=== PATIENT | male | born 2000 | race Caucasian/White ===

== ENCOUNTER 2024-07-22 19:05 | Emergency (ER) | payer SELFPAY ==
[2024-07-22 19:07] VITALS: BP 126/74; PULSE 125; RESP 14; TEMP 36; O2SAT 97; BMI 31.9
--- NOTE | 2024-07-22 19:56 | ED.VIS.GI ---
HPI HPI - GI History of Present Illness Chief Complaint: Abd Pain Narrative Narrative: 24-year-old male who denies significant past medical history presents with nausea, no vomiting, but 5 episodes of diarrhea and crampy abdominal pain that has had since 2:00 this morning. This is approximately 17 hours ago when it started. He has had 4-5 episodes of nonbloody diarrhea. He is nauseated but he has not vomited. He may feel feverish at times. He states a lot of his coworkers have the same symptoms. Feels somewhat weak and lightheaded as well. No significant past medical history. [facility] Medical History Physical exam, pre-employment Allergy/AdvReac Type Severity Reaction Status Date / Time Environmental Allergies: Allergy Mild Itching Verified 07/22/24 19:06 Uncoded (seasonal) Family History no significant family his Social History Smoking Status: Never smoker ROS ROS ED ROS Narrative Constitutional: Subjective fever, no chills. HEENT: No sore throat. No neck pain. No loss of vision. No rhinorrhea. Cardiovascular: No chest pain. No palpitations. No pedal edema. Respiratory: No cough, no shortness of breath. Abdominal: Diffuse, crampy abdominal pain. Positive nausea. No vomiting. 4-5 episodes of diarrhea, no bloody. Genitourinary: No dysuria. No hematuria. Musculoskeletal: No myalgias. No arthralgias. Neurologic: No headaches. No dizziness. Mild lightheadedness. Skin: No rash. No change in color. EXAM Physical Exam Narrative Exam Narrative: Afebrile. Vital signs noted. Nontoxic-appearing. Cardiovascular examination reveals mild tachycardia. Lungs are clear to auscultation bilaterally. Abdomen is soft with minimal diffuse tenderness to palpation. No guarding or rebound. Positive bowel sounds. Neurological examination nonfocal and nonlateralizing. Const Vital Signs: 07/22/24 19:07 Temperature 96.8 F L Temperature Source Temporal Pulse Rate 125 H Respiratory Rate 14 Blood Pressure 126/74 H Blood Pressure Mean 91 Pulse Ox 97 Oxygen Delivery Method Room Air MDM MDM MDM Narrative Medical decision making narrative: Differential diagnosis includes but not limited to gastroenteritis versus colitis versus nonspecific abdominal pain versus small bowel obstruction. Based on his history and physical, I suspect more enteritis/gastroenteritis type symptoms. I do not feel CT imaging is indicated. I discussed this with the patient as well who agrees and does not want CT imaging of his abdomen. I reviewed his laboratory work and he has a normal white count of 7.8 with hemoglobin normal at 15.6, hematocrit 44.3, platelet count normal at 227. Electrolyte panel shows potassium 3.3, low consistent with his diarrheal illness. BUN of 16 and creatinine 1.05. LFTs are grossly unremarkable. Lipase low at 21 so I doubt pancreatitis. Upon repeat examination after oral Bentyl, his abdomen remains soft. He feels improved. At this point in time, I feel he can be discharged to follow-up with a primary care provider. Potassium replaced orally. He requested note to be off work today only. I feel he can be discharged. Return instructions reviewed. Disposition is discharged home in stable condition. History & Record Review Discussion w/independent historian: Patient Lab Data Attestation: I reviewed the patient's lab results. Labs: Laboratory Results - last 24 hr 07/22/24 19:39 WBC 7.8 RBC 5.25 Hgb 15.6 Hct 44.3 MCV 84.4 MCH 29.7 MCHC 35.2 RDW Std Deviation 35.7 RDW Coeff of [place] 11.9 Plt Count 227 MPV 9.2 Immature Gran % (Auto) 0.300 Neut % (Auto) 81.9 H Lymph % (Auto) 6.3 L [place] % (Auto) 10.3 H Eos % (Auto) 0.8 Baso % (Auto) 0.4 Absolute Neuts (auto) 6.4 Absolute Lymphs (auto) 0.49 L Nucleated RBC % 0 Sodium 136 Potassium 3.3 L Chloride 105 Carbon Dioxide 25.0 Anion Gap 7 BUN 16 Creatinine 1.05 Estim Creat Clear Calc 119.34 Est GFR (MDRD) Af Amer 110 Est GFR (MDRD) Non-Af 91 BUN/Creatinine Ratio 15.2 Glucose 116 H Calcium 8.6 Total Bilirubin 1.40 H AST 15 ALT 27 Alkaline Phosphatase 63 Total Protein 7.4 Albumin 3.8 Globulin 3.6 Albumin/Globulin Ratio 1.1 Lipase 21 L Discharge Plan Triage Chief Complaint: Abd Pain ED Provider: Zachery Childress Dx/Rx/DC Orders Clinical Impression: Diarrhea, Nausea, Abdominal cramping, Hypokalemia Instructions: Treating Diarrhea, ED Diarrhea, Unknown Cause, ED Hypokalemia, ED Abdominal Pain Unkn Cause Male... Stand Alone Forms: ED Work / School Excuse Primary Care Provider: Care Physician,No Primary Referrals: Stephen Campbell MD [Med Staff - Active Staff] - Care Physician,No Primary [Primary Care Provider] - Activity Restrictions/Additional Instructions: Drink plenty of oral fluids. Return with fever, increased pain, new or worsening symptoms. Print Language: Burmese Disposition Disposition: Home, Self Care
[2024-07-22] MEDS: 0.9% Normal Saline (1000mL) 1,000 ML 999 ML IV (20:01)
[2024-07-22] MEDS: Dicyclomine 10 MG Capsule 20 MG PO (20:01)
[2024-07-22] MEDS: Ondansetron 4 MG/2 ML Vial IV (20:01)
[2024-07-22 20:03] LABS: Absolute Lymphocyte Count 0.49 X10^3/uL (0.83-4.51); Absolute Neutrophil Count 6.4 X10^3/uL (2.0-7.7); Basophil# 0.03 X10^3/uL; Basophil% 0.4 % (0-1); Eosinophil# 0.06 X10^3/uL; Eosinophils% 0.8 % (0-5); Hematocrit 44.3 % (40-54); Hemoglobin 15.6 g/dL (13.0-16.5); Lymphocyte # 0.49 X10^3/ul (0.83-4.51); Lymphocyte % 6.3 % (19-41); Mean Corp Hgb Conc 35.2 g/dL (32-36); Mean Corpuscular Hgb 29.7 pg (27.0-32.0); Mean Corpuscular Volume 84.4 fL (80-94); Mean Platelet Vol. 9.2 fl (6.2-12.0); Monocyte% 10.3 % (0-10); NRBC Flagged by Analyzer 0 % (0-5); Neutrophil # 6.36 X10^3/uL (2.7-7.7); Neutrophil % 81.9 % (47-70); POSITIVE DIFFERENTIAL YES; Platelet Count 227 K/mm3 (150-450); RBC Distribution Width CV 11.9 % (11.6-14.6); RBC Distribution Width SD 35.7 fl (35.1-43.9); Red Blood Count 5.25 M/mm3 (4.6-6.2); White Blood Count 7.8 K/mm3 (4.4-11.0)
[2024-07-22 20:23] LABS: ALB/GLOB Ratio 1.1 RATIO (0.9-2.4); AST(SGOT) 15 U/L (15-37); Alanine Aminotransfer ALT/SGPT 27 U/L (16-61); Albumin, Serum 3.8 g/dL (3.2-5.0); Alkaline Phosphatase 63 U/L (45-117); Anion Gap 7 (5-15); BUN 16 mg/dL (7-18); BUN/Creat Ratio 15.2 RATIO (10-20); Calcium,Total 8.6 mg/dL (8.5-10.1); Chloride 105 mmol/L (98-107); Creatinine, Serum 1.05 mg/dL (0.70-1.30); EST Glomerular Filtration Rate 91 mL/min (>60); Est Glom Filt Rate - Afr Amer 110 mL/min (>60); Estimated Creatinine Clearance 119.34 ml/min; Globulin 3.6 g/dL (2.2-4.2); Glucose 116 mg/dL (74-106); Lipase 21 U/L (73-393); Potassium 3.3 mmol/L (3.5-5.1); Protein, Total 7.4 g/dL (6.4-8.2); Sodium Level 136 mmol/L (136-145)
[2024-07-22] MEDS: Potassium Chloride Oral Tablet 20 MEQ 40 MEQ PO (20:46)
[2024-07-22 21:08] VITALS: PULSE 80
== END 2024-07-22 21:08 | disposition home or self-care (01) ==
PROVIDERS: Emergency Provider Emergency Medicine; Visit Provider Emergency Medicine
DX: R10.9 Unspecified abdominal pain (principal); R19.7 Diarrhea, unspecified; R11.0 Nausea; E87.6 Hypokalemia
CPT/HCPCS: 80053; 83690; 85025; 96361; 96374; 99284; A4216; J2405